=== PATIENT | male | born 1995 | race Caucasian/White ===

== ENCOUNTER 2019-01-08 20:44 | Emergency (ER) | payer OTHER ==
[~2019-01-08] VITALS: Ht 175.3 cm; Wt 102.6 kg
[2019-01-08 20:54] VITALS: BP 127/80
--- NOTE | 2019-01-08 20:57 | NUR ---
TO LOBBY A/W BED, AMBULATORY
--- NOTE | 2019-01-08 21:38 | NUR ---
PT AMBULATED TO ER BED 7
--- NOTE | 2019-01-08 21:45 | NUR ---
TO ED WITH C/O SORE THROAT UPON SWALLOWING. MILD REDNESS NOTED TO THROAT. PT DENIES ANY DIFFICULTY BREATHING, ABLE TO SPEAK IN FULL SENTENCES WITHOUT DIFFICULTY. PT PLACED INTO BED, PENDING MD CANALES.
--- NOTE | 2019-01-08 22:05 | NUR ---
DR. MADDEN EVALUATING PT
[2019-01-08] MEDS ORDERED: AMOXICILLIN 500 MG CAP PO ONE (22:25)
--- NOTE | 2019-01-08 22:51 | NUR ---
STREP SWAB DONE, LAB TO TARIFF COUNSEL
[2019-01-08] MEDS ORDERED: AMOXICILLIN 500 MG CAP ONE (22:53)
[2019-01-09 00:03] VITALS: BP 128/82
--- NOTE | 2019-01-09 00:03 | NUR ---
Patient discharged with v/s stable. Written and verbal after care instructions given and explained. Patient alert, oriented and verbalized understanding of instructions. Ambulatory with steady gait. All questions addressed prior to discharge. ID band removed. Patient advised to follow up with PMD. Rx of AMOXICILLIN 500MG AND MOTRIN 800MG given. Patient educated on indication of medication including possible reaction and side effects. Opportunity to ask questions provided and answered.
== END 2019-01-09 00:03 | disposition home or self-care (01) ==
LOC: MED 20:44
DX: J02.8 Acute pharyngitis due to other specified organisms (principal); B96.89 Other specified bacterial agents as the cause of diseases classified elsewhere
CPT/HCPCS: 87081; 99283